=== PATIENT | female | born 1990 | race African-American/Black ===

== ENCOUNTER 2017-01-19 08:43 | Emergency (ER) | payer OTHER ==
[~2017-01-19] VITALS: Ht 167.6 cm; Wt 65.3 kg
--- NOTE | 2017-01-19 09:01 | PHYS DOC ---
Past Medical History Past Medical History: Other Additional Past Medical Histor: lupus Past Surgical History: Other Additional Past Surgical Histo: L breast biopsy,LEFT INDEX FINGER Alcohol Use: None Drug Use: None Adult General Chief Complaint Chief Complaint: FLANK PAIN [facility] HPI Patient is a 26 year old female with a history of lupus who presents today with moderate right flank pain that began one week ago. Patient denies any fever nausea vomiting abdominal pain urgency frequency dysuria. Denies any history of kidney stones. 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 Review of Systems Review of Systems Constitutional: See history of present illness Eyes: Denies change in visual acuity, redness, or eye pain [] HENT: Denies nasal congestion or sore throat [] Respiratory: Denies cough or shortness of breath [] Cardiovascular: No additional information not addressed in HPI [] GI: See history of present illness : Right flank pain. Denies dysuria or hematuria [] Musculoskeletal: Denies back pain or joint pain [] Integument: Denies rash or skin lesions [] Neurologic: Denies headache, focal weakness or sensory changes [] Allergies Allergies Allergies Coded Allergies Type Severity Reaction Last Updated Verified sulfamethoxazole Allergy Severe anaphylaxis 12/11/15 Yes trimethoprim Allergy Severe anaphylaxis 12/11/15 Yes hydrocodone Allergy Intermediate rash 12/11/15 Yes tramadol Allergy Mild vomiting, fever 12/11/15 Yes Physical Exam Physical Exam Constitutional: Well developed, well nourished, no acute distress, non-toxic appearance. [] HENT: Normocephalic, atraumatic, bilateral external ears normal, oropharynx moist, no oral exudates, nose normal. [] Eyes: PERRLA, EOMI, conjunctiva normal, no discharge. [] Neck: Normal range of motion, no tenderness, supple, no stridor. [] Cardiovascular:Heart rate regular rhythm, no murmur [] Lungs & Thorax: Bilateral breath sounds clear to auscultation [] Abdomen: Bowel sounds normal, soft, no tenderness, no masses, no pulsatile masses. [] Skin: Warm, dry, no erythema, no rash. [] Back: No tenderness, mild right CVA tenderness. [] Extremities: No tenderness, no cyanosis, no clubbing, ROM intact, no edema. [] Neurologic: Alert and oriented X 3, normal motor function, normal sensory function, no focal deficits noted. [] Psychologic: Affect normal, judgement normal, mood normal. [] Current Patient Data Vital Signs Vital Signs Date Time Temp Pulse Resp B/P (MAP) Pulse Ox O2 Delivery O2 Flow Rate FiO2 01/19/17 09:26 100 18 102/58 (73) 99 Room Air 01/19/17 09:00 98.5 98.5 Lab Values Laboratory Tests Test 01/19/17 08:53 01/19/17 09:00 POC Urine HCG, Qualitative Hcg negative (Negative) Urine Color [place] Urine Clarity Clear Urine pH 6.5 Urine Specific [place] 1.020 Urine Protein Negative mg/dL (NEG-TRACE) Urine Glucose (UA) Negative mg/dL (NEG) Urine Ketones (Stick) Negative mg/dL (NEG) Urine Blood Negative (NEG) Urine Nitrite Negative (NEG) Urine Bilirubin Negative (NEG) Urine Urobilinogen Dipstick 1.0 mg/dL (0.2 mg/dL) Urine Leukocyte Esterase Negative (NEG) Urine RBC Occ /HPF (0-2) Urine WBC 1-4 /HPF (0-4) Urine Squamous Epithelial Cells Many /LPF Urine Bacteria Few /HPF (0-FEW) Urine Mucus Mod /LPF EKG EKG [] Radiology/Procedures Radiology/Procedures [] Course & Med Decision Making Course & Med Decision Making Pertinent Labs and Imaging studies reviewed. (See chart for details) This is a 26-year-old female patient presented to the ED today with right flank pain for one week, Negative urine hCG, urine analysis is negative for infection. No blood in the urine. Patient's pain is likely musculoskeletal. 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 Patient was discharged with pain medicines and muscle relaxers. She was instructed to follow -up with her PCP in 1-2 weeks. Heat recommended to her back. Dragon Disclaimer Dragon Disclaimer This electronic medical record was generated, in whole or in part, using a voice recognition dictation system. Departure Departure Impression: Primary Impression: Right flank pain Disposition: 01 HOME, SELF-CARE Condition: STABLE Referrals: KELLYE SIMON MD (PCP) Follow-up with your doctor in one week Patient Instructions: Flank Pain, [id number] Additional Instructions: You were seen with a right flank pain suspicious of musculoskeletal pain. Your urine analysis is negative for infection. Consider applying heat to your back, avoid heavy lifting greater than a gallon of milk for 3 days. Follow-up with your doctor in one week. Come back to the ED if symptoms worsen. Scripts Cyclobenzaprine Hcl (CYCLOBENZAPRINE HCL) 10 Mg Tablet 1 TAB PO TID, #30 TAB Prov: JAMESON ZIMMERMAN APRN 01/19/17 Oxycodone/Apap 5-325 (PERCOCET 5-325 MG TABLET) 1 Each Tablet 1-2 TAB PO Q4-6HRS, #14 TAB Prov: JAMESON ZIMMERMAN APRN 01/19/17 JAMESON ZIMMERMAN APRN Jan 19, 2017 09:01
[2017-01-19 09:25] LABS: BILIRUBIN,URINE NEGATIVE (NEG); GLUCOSE,URINE NEGATIVE (NEG); NITRITE,URINE NEGATIVE (NEG); PH,URINE 6.5; PROTEIN,URINE NEGATIVE (NEG-TRACE)
[2017-01-19 09:30] LABS: SQUAMOUS EPITHELIAL CELL,UR MANY /LPF
[2017-01-19 09:31] LABS: BACTERIA,URINE FEW /HPF (0-FEW); RBC,URINE OCC /HPF (0-2)
[2017-01-19] MEDS ORDERED: OXYC-323 PO (09:58)
[2017-01-19] MEDS ORDERED: CYCL10TA2 PO (09:58)
[2017-01-19 10:00] VITALS: BP 109/59
== END 2017-01-19 10:04 | disposition home or self-care (01) ==
LOC: ER 08:43
DX: R10.9 Unspecified abdominal pain (principal); Z88.1 Allergy status to other antibiotic agents; Z88.2 Allergy status to sulfonamides; Z88.5 Allergy status to narcotic agent; Z88.6 Allergy status to analgesic agent
CPT/HCPCS: 81001; 81025; 99283

== ENCOUNTER 2017-02-07 16:48 | Emergency (ER) | payer OTHER ==
[~2017-02-07] VITALS: Ht 167.6 cm; Wt 63.5 kg
[~2017-02-07 16:48] MED LIST: CYCL10TA2 PO; OXYC-323 PO
[2017-02-07 17:30] LABS: BILIRUBIN,URINE NEGATIVE (NEG); GLUCOSE,URINE NEGATIVE (NEG); NITRITE,URINE NEGATIVE (NEG); PROTEIN,URINE NEGATIVE (NEG-TRACE); UROBILINOGEN,URINE 0.2 mg/dL (0.2 mg/dL)
[2017-02-07 17:39] LABS: BACTERIA,URINE FEW /HPF (0-FEW); RBC,URINE 0 /HPF (0-2); SQUAMOUS EPITHELIAL CELL,UR FEW /LPF; WBC,URINE 0 /HPF (0-4)
--- NOTE | 2017-02-07 17:39 | PHYS DOC ---
Past Medical History Past Medical History: Other Additional Past Medical Histor: lupus Past Surgical History: Other Additional Past Surgical Histo: L breast biopsy,LEFT INDEX FINGER Alcohol Use: None Drug Use: None Adult General Chief Complaint Chief Complaint: FLANK PAIN [facility] HPI Patient is a 26 year old female presents to the emergency with right flank pain for the last 2 days. She states the pain radiates up her right back. Patient states she has a history of lupus. Patient states she has placed creams over the area with out relief. Patient states she has oxycodone at home however has not taken this medication. She states she has frequent urination. Review of Systems Review of Systems Constitutional: Denies fever or chills [] Eyes: Denies change in visual acuity, redness, or eye pain [] HENT: Denies nasal congestion or sore throat [] Respiratory: Denies cough or shortness of breath [] Cardiovascular: No additional information not addressed in HPI [] GI: Denies abdominal pain, nausea, vomiting, bloody stools or diarrhea [] : dysuria denies hematuria [] Musculoskeletal: right flank pain Integument: Denies rash or skin lesions [] Neurologic: Denies headache, focal weakness or sensory changes [] Endocrine: Denies polyuria or polydipsia [] Allergies Allergies Allergies Coded Allergies Type Severity Reaction Last Updated Verified sulfamethoxazole Allergy Severe anaphylaxis 12/11/15 Yes trimethoprim Allergy Severe anaphylaxis 12/11/15 Yes hydrocodone Allergy Intermediate rash 12/11/15 Yes tramadol Allergy Mild vomiting, fever 12/11/15 Yes Physical Exam Physical Exam Constitutional: Well developed, well nourished, no acute distress, non-toxic appearance. [] HENT: Normocephalic, atraumatic, bilateral external ears normal, oropharynx moist, no oral exudates, nose normal. [] Eyes: PERRLA, EOMI, conjunctiva normal, no discharge. [] Neck: Normal range of motion, no tenderness, supple, no stridor. [] Cardiovascular:Heart rate regular rhythm, no murmur [] Lungs & Thorax: Bilateral breath sounds clear to auscultation [] Abdomen: Bowel sounds hypoactive, soft, no tenderness, no masses, no pulsatile masses. [] Skin: Warm, dry, no erythema, no rash. [] Back: No tenderness, right CVA tenderness. [] Extremities: No tenderness, no cyanosis, no clubbing, ROM intact, no edema. [] Neurologic: Alert and oriented X 3, normal motor function, normal sensory function, no focal deficits noted. [] Psychologic: Affect normal, judgement normal, mood normal. [] Current Patient Data Vital Signs Vital Signs Date Time Temp Pulse Resp B/P (MAP) Pulse Ox O2 Delivery O2 Flow Rate FiO2 02/07/17 17:15 98.1 97 18 132/75 (94) 99 Room Air 98.1 Lab Values Laboratory Tests Test 02/07/17 17:12 02/07/17 17:24 Urine Collection Type Unknown Urine Color Straw Urine Clarity Clear Urine pH 7.0 Urine Specific [place] <=1.005 Urine Protein Negative mg/dL (NEG-TRACE) Urine Glucose (UA) Negative mg/dL (NEG) Urine Ketones (Stick) Negative mg/dL (NEG) Urine Blood Negative (NEG) Urine Nitrite Negative (NEG) Urine Bilirubin Negative (NEG) Urine Urobilinogen Dipstick 0.2 mg/dL (0.2 mg/dL) Urine Leukocyte Esterase Negative (NEG) Urine RBC 0 /HPF (0-2) Urine WBC 0 /HPF (0-4) Urine Squamous Epithelial Cells Few /LPF Urine Bacteria Few /HPF (0-FEW) POC Urine HCG, Qualitative Hcg negative (Negative) EKG EKG [] Radiology/Procedures Radiology/Procedures [] Course & Med Decision Making Course & Med Decision Making Pertinent Labs and Imaging studies reviewed. (See chart for details) Urine was negative for any urine tract infection. Patient will be encouraged to drink plenty of fluids. Patient will also be encouraged to use her oxycodone which she has a home for pain and control. Patient will be provided with a prescription for Flexeril to help with muscle spasms and discomfort. She was instructed this medication will cause drowsiness do not take any be alert and oriented. Patient will be discharged home in stable condition with signs and symptoms to return back to the emergency department. All questions and concerns been answered at patient's bedside. Recommended patient follow-up primary care physician next 7-10 days. [] Dragon Disclaimer Dragon Disclaimer This electronic medical record was generated, in whole or in part, using a voice recognition dictation system. Departure Departure Impression: Primary Impression: Right flank pain Disposition: HOME, SELF-CARE Condition: STABLE Referrals: Sarah ROSARIO MD (PCP) Patient Instructions: Flank Pain, [id number] Additional Instructions: Activity as tolerated. Medications as prescribed. Flexeril will cause drowsiness do not take any be alert and oriented. Take your home medications as prescribed. Take your oxycodone as prescribed however this medication will cause drowsiness as well. You may try ice packs to your back area this does not help him a also try warm moist heat. Follow-up to primary care physician in the next 7-10 days. Return back to emergency prior signs symptoms of become worse. Scripts Cyclobenzaprine Hcl (CYCLOBENZAPRINE HCL) 10 Mg Tablet 1 TAB PO TID Y for MUSCLE SPASMS, #30 TAB Prov: MATIAS CHILEL APRN 02/07/17 MATIAS CHILEL APRN Feb 07, 2017 17:39
[2017-02-07] MEDS ORDERED: CYCL10TA2 PO (17:45)
[2017-02-07 18:13] VITALS: BP 129/76
== END 2017-02-07 18:19 | disposition home or self-care (01) ==
LOC: ER 16:48
DX: R10.9 Unspecified abdominal pain (principal); R35.0 Frequency of micturition; R30.0 Dysuria; M32.9 Systemic lupus erythematosus, unspecified; Z88.2 Allergy status to sulfonamides; Z88.1 Allergy status to other antibiotic agents; Z88.5 Allergy status to narcotic agent
CPT/HCPCS: 81001; 81025; 99283

== ENCOUNTER 2017-03-13 16:20 | Emergency (ER) | payer OTHER ==
[~2017-03-13] VITALS: Ht 170.2 cm; Wt 63.5 kg
[2017-03-13 16:30] VITALS: BP 116/59
[2017-03-13] MEDS ORDERED: PRED20TA PO (17:03)
[2017-03-13] MEDS ORDERED: ACYC800T PO (17:03)
[2017-03-13] MEDS ORDERED: OXYC-323 PO (17:03)
--- NOTE | 2017-03-13 17:04 | PHYS DOC ---
Past Medical History Past Medical History: Anxiety, Seizure, Other Additional Past Medical Histor: lupus Past Surgical History: No Surgical History Additional Past Surgical Histo: L breast biopsy,LEFT INDEX FINGER Alcohol Use: None Drug Use: None Adult General Chief Complaint Chief Complaint: SKIN RASH/ABSCESS [facility] HPI Patient is a 26 year old [male presents to the emergency department stating that she has a pustular-type rash on bilateral hands chest back and down onto her buttocks area. She states that she's had these areas started on . Patient states that she has had chickenpox in the past she has had shingles in the past she states that these areas are very painful. She states that she has popped some of the areas due to the pain and discomfort. She denies any fever, chills or any nausea or vomiting. Review of Systems Review of Systems Constitutional: Denies fever or chills [] Eyes: Denies change in visual acuity, redness, or eye pain [] HENT: Denies nasal congestion or sore throat [] Respiratory: Denies cough or shortness of breath [] Cardiovascular: No additional information not addressed in HPI [] GI: Denies abdominal pain, nausea, vomiting, bloody stools or diarrhea [] : Denies dysuria or hematuria [] Musculoskeletal: Denies back pain or joint pain [] Integument: rash denies skin lesions [] Neurologic: Denies headache, focal weakness or sensory changes [] Endocrine: Denies polyuria or polydipsia [] All other systems were reviewed and found to be within normal limits, except as documented in this note. Allergies Allergies Allergies Coded Allergies Type Severity Reaction Last Updated Verified sulfamethoxazole Allergy Severe anaphylaxis 12/11/15 Yes trimethoprim Allergy Severe anaphylaxis 12/11/15 Yes hydrocodone Allergy Intermediate rash 12/11/15 Yes tramadol Allergy Mild vomiting, fever 12/11/15 Yes Physical Exam Physical Exam Constitutional: Well developed, well nourished, no acute distress, non-toxic appearance. [] HENT: Normocephalic, atraumatic, bilateral external ears normal, oropharynx moist, no oral exudates, nose normal. [] Eyes: PERRLA, EOMI, conjunctiva normal, no discharge. [] Neck: Normal range of motion, no tenderness, supple, no stridor. [] Cardiovascular:Heart rate regular rhythm, no murmur [] Lungs & Thorax: Bilateral breath sounds clear to auscultation [] Skin: Warm, dry, no erythema, with a pustular type rash throughout the upper chest, back area down into the buttocks area bilateral hands. Areas appear to be of multiple different stages some areas do appear to have scabbed. Extremities: No tenderness, no cyanosis, no clubbing, ROM intact, no edema. [] Neurologic: Alert and oriented X 3, normal motor function, normal sensory function, no focal deficits noted. [] Psychologic: Affect normal, judgement normal, mood normal. [] Current Patient Data Vital Signs Vital Signs Date Time Temp Pulse Resp B/P (MAP) Pulse Ox O2 Delivery O2 Flow Rate FiO2 03/13/17 16:30 99.0 114 18 98 Room Air 99.0 EKG EKG [] Radiology/Procedures Radiology/Procedures [] Course & Med Decision Making Course & Med Decision Making Pertinent Labs and Imaging studies reviewed. (See chart for details) Keep the areas clean dry. Do not scratch the areas to pop the blisters. You may try acyclovir, prednisone, and Benadryl. Benadryl will cause drowsiness do not take if he needs to be alert and oriented. Aveeno baths may also help soothe the skin. Percocet for severe pain and discomfort. This medication will cause drowsiness do not take any be alert and oriented. Follow-up with your primary care physician next 5-7 days. []I've spoken with the patient and/or caregivers. I've explained the patient's condition, diagnosis and treatment plan based on information available to me at this time. I've answered the patient's and/or caregivers questions and addressed any concerns. The patient and/or caregivers have a good understanding the patient's diagnosis, condition and treatment plan as can be expected at this point. Vital signs have been stabilized. The patient's condition is stable for discharge from the emergency department. The patient will pursue further outpatient evaluation with her primary care provider or other designated consulting physician as outlined in the discharge instructions. Patient and/or caregivers are agreeable to this plan of care and follow-up instructions have been explained in detail. The patient and/or caregivers have received these instructions in written format and expressed understanding of these discharge instructions. The patient and her caregivers are aware that if any significant change in condition or worsening of symptoms should prompt him to immediately return to this of the closest emergency department. If an emergent department is not readily available I would encourage him to call 911. Jil Disclaimer Jil Disclaimer This electronic medical record was generated, in whole or in part, using a voice recognition dictation system. Departure Departure Impression: Primary Impression: Herpes zoster Disposition: 01 HOME, SELF-CARE Condition: STABLE Referrals: NO PCP (PCP) Patient Instructions: Chickenpox, Adult Additional Instructions: Activity as tolerated. Keep the areas clean and dry. Do not popped blisters. Medications as prescribed. You may use Benadryl 25 mg every 6 hours [id number]. This medication will cause drowsiness do not take if he needed to be alert and oriented. Percocet will also cause drowsiness do not take any be alert and oriented. Aveeno baths may also help soothe the skin. Follow-up to primary care physician next 5-7 days. Return back to emergency #symptoms become worse. Scripts Acyclovir (ACYCLOVIR) 800 Mg Tablet 1 TAB PO 5XDAY, #50 TAB Prov: MATIAS CHILEL APRN 03/13/17 Oxycodone/Apap 5-325 (PERCOCET 5-325 MG TABLET) 1 Each Tablet 1 TAB PO PRN Q6HRS Y for PAIN, #10 TAB 0 Refills Prov: MATIAS CHILEL APRN 03/13/17 Prednisone (PREDNISONE) 20 Mg Tablet 40 MG PO DAILY for 7 Days, #14 TAB Prov: MATIAS CHILEL APRN 03/13/17 Problem Qualifiers Primary Impression: Herpes zoster Herpes zoster complications: without complications Qualified Codes: B02.9 - Zoster without complications MATIAS CHILEL APRN Mar 13, 2017 17:03
== END 2017-03-13 17:06 | disposition home or self-care (01) ==
LOC: ER 16:20
DX: B02.9 Zoster without complications (principal); F41.9 Anxiety disorder, unspecified; Z88.1 Allergy status to other antibiotic agents; Z88.5 Allergy status to narcotic agent; Z88.6 Allergy status to analgesic agent
CPT/HCPCS: 99283

== ENCOUNTER 2017-03-27 18:35 | Emergency (ER) | payer SELFPAY ==
[~2017-03-27] VITALS: Ht 170.2 cm; Wt 61.2 kg
[~2017-03-27 18:35] MED LIST changes: +ACYC800T PO; +PRED20TA PO
[2017-03-27 19:30] VITALS: BP 106/65
[2017-03-27 19:54] LABS: BILIRUBIN,URINE NEGATIVE (NEG); GLUCOSE,URINE NEGATIVE (NEG); NITRITE,URINE NEGATIVE (NEG); PH,URINE 6.5; PROTEIN,URINE NEGATIVE (NEG-TRACE); UROBILINOGEN,URINE 0.2 mg/dL (0.2 mg/dL)
[2017-03-27] MEDS ORDERED: DEXAMETHASONE SOD PHOS 20 MG/5 ML VIAL. IM ONE (20:00)
[2017-03-27] MEDS ORDERED: KETOROLAC 60 MG/2 ML INJ. IM ONE (20:00)
--- NOTE | 2017-03-27 20:04 | PHYS DOC ---
Past Medical History Past Medical History: Anxiety, Seizure, UTI, Other Additional Past Medical Histor: lupus Past Surgical History: No Surgical History, Other Additional Past Surgical Histo: L breast biopsy,LEFT INDEX FINGER Alcohol Use: None Drug Use: None Adult General Chief Complaint Chief Complaint: FLANK PAIN HPI HPI Patient is a 27 year old female with history of anxiety and lupus who presents today complaining of moderate left low back pain/flank pain that has been going on for couple days. Patient is tearful. Patient denies any known injury. She states she might have a UTI. Denies any urgency frequency or dysuria. She states she has some hesitancy. She is also complaining of chickenpox that she's had for 2 weeks. She states she has history of shingles and was seen by the PCP 2 weeks ago and was informed she has chickenpox. Review of Systems Review of Systems Constitutional: Denies fever or chills [] Eyes: Denies change in visual acuity, redness, or eye pain [] HENT: Denies nasal congestion or sore throat [] Respiratory: Denies cough or shortness of breath [] Cardiovascular: No additional information not addressed in HPI [] GI: Denies abdominal pain, nausea, vomiting, bloody stools or diarrhea [] : Hesitancy. Denies dysuria or hematuria [] Musculoskeletal: Left flank pain/low back pain Integument: Chickenpox rash Neurologic: Denies headache, focal weakness or sensory changes [] All other systems were reviewed and found to be within normal limits, except as documented in this note. Current Medications Current Medications Current Medications Medications (Trade) Dose Ordered Sig/[facility] Start Time Stop Time Status Last Admin Dose Admin Dexamethasone Sodium Phosphate (Decadron) 10 mg 1X ONCE 03/27/17 20:00 03/27/17 20:04 DC 03/27/17 20:11 10 MG Ketorolac Tromethamine (Toradol Im) 60 mg 1X ONCE 03/27/17 20:00 03/27/17 20:04 DC 03/27/17 20:11 60 MG Allergies Allergies Allergies Coded Allergies Type Severity Reaction Last Updated Verified sulfamethoxazole Allergy Severe anaphylaxis 12/11/15 Yes trimethoprim Allergy Severe anaphylaxis 12/11/15 Yes hydrocodone Allergy Intermediate rash 12/11/15 Yes tramadol Allergy Mild vomiting, fever 12/11/15 Yes Physical Exam Physical Exam Constitutional: Well developed, well nourished, no acute distress, non-toxic appearance. [] HENT: Normocephalic, atraumatic, bilateral external ears normal, oropharynx moist, no oral exudates, nose normal. [] Eyes: PERRLA, EOMI, conjunctiva normal, no discharge. [] Neck: Normal range of motion, no tenderness, supple, no stridor. [] Cardiovascular:Heart rate regular rhythm, no murmur [] Lungs & Thorax: Bilateral breath sounds clear to auscultation [] Abdomen: Bowel sounds normal, soft, no tenderness, no masses, no pulsatile masses. [] Skin: Warm, dry, moderate amount of fluid filled clustered some of them are excoriated from itching on her face bilateral upper extremities. Back: No tenderness, no CVA tenderness. [] Extremities: No tenderness, no cyanosis, no clubbing, ROM intact, no edema. [] Neurologic: Alert and oriented X 3, normal motor function, normal sensory function, no focal deficits noted. [] Psychologic: Affect normal, judgement normal, mood normal. [] Current Patient Data Vital Signs Vital Signs Date Time Temp Pulse Resp B/P (MAP) Pulse Ox O2 Delivery O2 Flow Rate FiO2 03/27/17 19:30 98.6 93 16 106/65 (79) 99 Room Air 98.6 Lab Values Laboratory Tests Test 03/27/17 19:25 03/27/17 19:40 Urine Collection Type Unknown Urine Color Yellow Urine Clarity Clear Urine pH 6.5 Urine Specific [place] <=1.005 Urine Protein Negative mg/dL (NEG-TRACE) Urine Glucose (UA) Negative mg/dL (NEG) Urine Ketones (Stick) Negative mg/dL (NEG) Urine Blood Negative (NEG) Urine Nitrite Negative (NEG) Urine Bilirubin Negative (NEG) Urine Urobilinogen Dipstick 0.2 mg/dL (0.2 mg/dL) Urine Leukocyte Esterase Negative (NEG) Urine RBC 0 /HPF (0-2) Urine WBC 0 /HPF (0-4) Urine Squamous Epithelial Cells Few /LPF Urine Bacteria Few /HPF (0-FEW) POC Urine HCG, Qualitative Hcg negative (Negative) EKG EKG [] Radiology/Procedures Radiology/Procedures [] Course & Med Decision Making Course & Med Decision Making Pertinent Labs and Imaging studies reviewed. (See chart for details) Patient is in the ED with left low back pain/flank pain as well as a rash consistent with shingles though she states is chickenpox. She has history of shingles. Urine analysis is as noted infection or blood. Her pain is very musculoskeletal. She was given Toradol and Decadron in the ED. She'll be discharged with Medrol Dosepak cyclobenzaprine and 8 tablets of oxycodone. She was provided a note for work and instructed to follow-up with her PCP in one week. Dragon Disclaimer Dragon Disclaimer This electronic medical record was generated, in whole or in part, using a voice recognition dictation system. Departure Departure Impression: Primary Impression: Shingles Additional Impressions: Left flank pain Low back pain Disposition: 01 HOME, SELF-CARE Condition: STABLE Referrals: NO PCP (PCP) follow up in one week Patient Instructions: Back Pain, Adult, Flank Pain, Shingles Additional Instructions: You were seen with back pain, flank pain, and shingles. Take the prescribed medicines as ordered. Follow-up with your doctor in 1-2 weeks. Scripts Methylprednisolone (MEDROL) 4 Mg Tab.ds.pk 1 PKG PO UD, #1 PKG Prov: JAMESON ZIMMERMAN APRN 03/27/17 Cyclobenzaprine Hcl (CYCLOBENZAPRINE HCL) 10 Mg Tablet 1 TAB PO TID, #30 TAB Prov: JAMESON ZIMMERMAN APRN 03/27/17 Oxycodone/Apap 5-325 (PERCOCET 5-325 MG TABLET) 1 Each Tablet 1-2 TAB PO Q4-6HRS, #8 TAB Prov: JAMESON ZIMMERMAN APRN 03/27/17 Problem Qualifiers Primary Impression: Shingles Herpes zoster complications: without complications Qualified Codes: B02.9 - Zoster without complications Additional Impressions: Low back pain Chronicity: acute Back pain laterality: left Sciatica presence: without sciatica Qualified Codes: M54.5 - Low back pain JAMESON ZIMMERMAN APRN Mar 27, 2017 20:04
[2017-03-27 20:05] LABS: BACTERIA,URINE FEW /HPF (0-FEW); RBC,URINE 0 /HPF (0-2); SQUAMOUS EPITHELIAL CELL,UR FEW /LPF; WBC,URINE 0 /HPF (0-4)
[2017-03-27] MEDS ORDERED: OXYC-323 PO (20:43)
[2017-03-27] MEDS ORDERED: METH4TAB2 PO (20:43)
[2017-03-27] MEDS ORDERED: CYCL10TA2 PO (20:43)
== END 2017-03-27 21:06 | disposition home or self-care (01) ==
LOC: ER 18:35
DX: M54.5 Low back pain (principal); B02.9 Zoster without complications; R10.9 Unspecified abdominal pain; R30.0 Dysuria; R39.11 Hesitancy of micturition; F41.9 Anxiety disorder, unspecified; Z87.440 Personal history of urinary (tract) infections; Z88.1 Allergy status to other antibiotic agents; Z88.5 Allergy status to narcotic agent; Z88.6 Allergy status to analgesic agent
CPT/HCPCS: 81001; 81025; 96372; 99284; J1100; J1885

== ENCOUNTER 2017-06-01 14:29 | Emergency (ER) | payer SELFPAY | END 2017-06-01 14:50 | disposition left against medical advice (07) | LOC: ER 14:50 | DX: L98.8 Other specified disorders of the skin and subcutaneous tissue (principal); Z88.5 Allergy status to narcotic agent; Z88.2 Allergy status to sulfonamides; Z88.1 Allergy status to other antibiotic agents; Z53.21 Procedure and treatment not carried out due to patient leaving prior to being seen by health care provider ==

== ENCOUNTER 2017-06-01 19:18 | Emergency (ER) | payer OTHER ==
[2017-06-01 19:45] LABS: URINE HCG POC HCG NEGATIVE (Negative)
[2017-06-01] MEDS: MORPHINE SULFATE 10 MG/ML VIAL. IM ×2 (20:33)
== END 2017-06-01 21:13 | disposition home or self-care (01) ==
LOC: ER 19:18
DX: R21 Rash and other nonspecific skin eruption (principal); R23.8 Other skin changes; Z88.2 Allergy status to sulfonamides; Z88.1 Allergy status to other antibiotic agents; Z88.5 Allergy status to narcotic agent; Z88.6 Allergy status to analgesic agent
CPT/HCPCS: 81025; 96372; 99283-25; J2270

== ENCOUNTER 2018-10-18 10:41 | Emergency (ER) | payer MEDICAID, OTHER ==
[~2018-10-18] VITALS: Ht 167.6 cm; Wt 63.5 kg
[~2018-10-18 10:41] MED LIST changes: +CEPH-264 PO; +METH4TAB2 PO; -OXYC-323 PO; +OXYC1TAB15 PO
[2018-10-18 11:25] VITALS: BP 118/56
--- NOTE | 2018-10-18 12:16 | PHYS DOC ---
Past Medical History Past Medical History: Anxiety, Seizure, UTI, Other Additional Past Medical Histor: lupus, EPILEPSY Past Surgical History: No Surgical History, Other Additional Past Surgical Histo: L breast biopsy,LEFT INDEX FINGER Alcohol Use: None Drug Use: None Adult General Chief Complaint Chief Complaint: FACE PAIN HPI HPI Patient is a 28 year old female who presents to the ED today complaining of moderate bilateral lower jaw dental pain for one week. Patient denies any fever or trismus. Review of Systems Review of Systems Constitutional: Denies fever or chills [] HENT: Reports dental pain Musculoskeletal: Denies back pain or joint pain [] Integument: Denies rash or skin lesions [] Neurologic: Denies headache, focal weakness or sensory changes [] All other systems were reviewed and found to be within normal limits, except as documented in this note. Allergies Allergies Allergies Coded Allergies Type Severity Reaction Last Updated Verified sulfamethoxazole Allergy Severe anaphylaxis 12/11/15 Yes trimethoprim Allergy Severe anaphylaxis 12/11/15 Yes hydrocodone Allergy Intermediate rash 12/11/15 Yes tramadol Allergy Mild vomiting, fever 12/11/15 Yes Physical Exam Physical Exam Constitutional: Well developed, well nourished, no acute distress, non-toxic appearance. [] HENT: Normocephalic, atraumatic, bilateral external ears normal, oropharynx moist, no oral exudates, nose normal. [] Moderately decayed broken teeth, missing multiple teeth. Gum erythema with poor dentition Skin: Warm, dry, no erythema, no rash. [] Back: No tenderness, no CVA tenderness. [] Extremities: No tenderness, no cyanosis, no clubbing, ROM intact, no edema. [] Neurologic: Alert and oriented X 3, normal motor function, normal sensory function, no focal deficits noted. [] Psychologic: Affect normal, judgement normal, mood normal. [] Current Patient Data Vital Signs Vital Signs Date Time Temp Pulse Resp B/P (MAP) Pulse Ox O2 Delivery O2 Flow Rate FiO2 10/18/18 11:25 98.2 94 18 118/56 (76) 99 Room Air 98.2 EKG EKG [] Radiology/Procedures Radiology/Procedures [] Course & Med Decision Making Course & Med Decision Making Pertinent Labs and Imaging studies reviewed. (See chart for details) This is a 20-year-old female patient presented to the ED today with infected dental caries. Patient was discharged on amoxicillin. Follow-up with her dentist. Jil Disclaimer Kikaon Disclaimer This electronic medical record was generated, in whole or in part, using a voice recognition dictation system. Departure Departure Impression: Primary Impression: Infected dental caries Additional Impression: Dentalgia Disposition: 01 HOME, SELF-CARE Condition: STABLE Referrals: Sarah ROSARIO MD (PCP) follow up in with your doctori n 1-2 weeks Patient Instructions: Dental Caries Additional Instructions: You have dental infection. Please complete your antibiotics Scripts Amoxicillin (AMOXICILLIN) 500 Mg Tablet 1 TAB PO BID, #20 TAB Prov: JAMESON ZIMMERMAN APRN 10/18/18 Problem Qualifiers JAMESON ZIMMERMAN APRN Oct 18, 2018 12:15
[2018-10-18] MEDS ORDERED: AMOX500T PO (12:19)
== END 2018-10-18 12:20 | disposition home or self-care (01) ==
LOC: ER 10:41
DX: K04.7 Periapical abscess without sinus (principal); K08.89 Other specified disorders of teeth and supporting structures; G40.909 Epilepsy, unspecified, not intractable, without status epilepticus; Z88.1 Allergy status to other antibiotic agents; Z88.2 Allergy status to sulfonamides; Z88.5 Allergy status to narcotic agent; Z88.6 Allergy status to analgesic agent
CPT/HCPCS: 99283